=== PATIENT | male | born 1995 | race Caucasian/White ===

== ENCOUNTER 2020-05-25 12:33 | Emergency (ER) | payer OTHER ==
[~2020-05-25] VITALS: Ht 190.5 cm; Wt 87.3 kg
[2020-05-25 12:39] VITALS: BP 130/75
--- NOTE | 2020-05-25 12:59 | NUR ---
BILL RN: PT LEFT PRIOR TO RECEIVED DC [facility].
== END 2020-05-25 13:00 | disposition home or self-care (01) ==
LOC: ED 12:45
DX: U07.1 COVID-19 (principal); J06.9 Acute upper respiratory infection, unspecified
CPT/HCPCS: 87635; 99283